=== PATIENT | male | born 1995 | race African-American/Black ===

== ENCOUNTER 2017-05-09 13:58 | Emergency (ER) | payer OTHER ==
[~2017-05-09] VITALS: Ht 182.9 cm; Wt 77.1 kg
[2017-05-09 13:58] VITALS: BP 130/80
[~2017-05-09 13:58] MED LIST: ALBUTEROL SULF8.5 GM INH; PREDNISONE20 MG ORAL
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
[2017-05-09] MEDS ORDERED: ROBAXIN-750750 MG PO (15:50)
[2017-05-09] MEDS ORDERED: IBUPROFEN600 MG ORAL (15:50)
[2017-05-09 16:30] VITALS: BP 130/80
[2017-05-09] MEDS ORDERED: Methocarbamol 750mg tab ORAL ONE (16:30)
--- NOTE | 2017-05-09 17:40 | Diagnostic Imaging Report ---
Indication: Pain Technique: XRAY Hand Complete L Comparison: None Findings: There is no acute fracture or dislocation. There is slight irregularity of the cortex along the ulnar aspect of the fifth metacarpal shaft. This may be sequela of remote injury. Anatomic alignment and joint spaces are preserved. No radiopaque foreign body seen. Impression: No acute fracture or dislocation.
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
== END 2017-05-09 16:30 | disposition home or self-care (01) ==
LOC: EDBD 13:58 → EMR 16:19
DX: S02.81XA Fracture of other specified skull and facial bones, right side, initial encounter for closed fracture (principal); Y08.89XA Assault by other specified means, initial encounter; Y92.410 Unspecified street and highway as the place of occurrence of the external cause; J45.909 Unspecified asthma, uncomplicated; S16.1XXA Strain of muscle, fascia and tendon at neck level, initial encounter; M79.641 Pain in right hand; J32.2 Chronic ethmoidal sinusitis
CPT/HCPCS: 70450; 70486; 72125; 99284